=== PATIENT | female | born 1990 | race Caucasian/White ===

== ENCOUNTER 2019-09-14 14:09 | Outpatient (CLI) | payer OTHER, SELFPAY ==
--- NOTE | ~2019-09-14 | US_ITS ---
EXAMINATION: US pelvic complete w TV DATE: 09/14/2019 15:06 INDICATION: Right vaginal wall cyst. Intrauterine device. TECHNIQUE: Multiple transabdominal and transvaginal sonographic images of the pelvis were obtained. COMPARISON: None. FINDINGS: TRANSABDOMINAL ULTRASOUND: The uterus measures 8.4 x 3.4 x 5.4 cm. There is no free fluid in the pelvis. No vaginal wall cyst is seen. TRANSVAGINAL ULTRASOUND: The endometrial complex measures 2 mm in thickness. There is an intrauterine device in expected posit ion. The right ovary measures 3.6 x 2.6 x 3.0 cm. The left ovary measures 3.5 x 2.1 x 3.3 cm. IMPRESSION: 1. Intrauterine device in expected position. Reviewed, dictated and finalized at location A.
== END 2019-09-14 14:10 | disposition home or self-care (01) ==
LOC: ANHIMG 14:17
PROVIDERS: PCP Emergency Medicine; Visit Provider Nurse Practitioner
DX: Z97.5 Presence of (intrauterine) contraceptive device (principal)
CPT/HCPCS: 76830; 76856

== ENCOUNTER 2019-09-23 21:30 | Emergency (ER) | payer OTHER, SELFPAY ==
--- NOTE | ~2019-09-23 | XR_ITS ---
EXAMINATION: XR ankle RT min 3V EXAM DATE: 09/23/2019 21:46 INDICATION: Initial encounter following injury, with pain of the right ankle. TECHNIQUE: Right ankle frontal, lateral and oblique projections obtained and reviewed. There is no p rior study for comparison. FINDINGS: The right ankle mortise appears intact. There are no acute fractures or dislocations iden tified. There is no subcutaneous gas. The soft tissue is unremarkable. There are no radiopaque fo reign bodies. IMPRESSION: No acute osseous findings. Reviewed, dictated and finalized at location G. IMPRESSION: No acute osseous findings.
[2019-09-23 21:32] VITALS: BP 132/75; PULSE 104; RESP 18; TEMP 36.9; O2SAT 98
--- NOTE | 2019-09-23 21:35 | ED.LOWEXIN ---
HPI - Extremity Injury (Lower) General Chief Complaint: Extremity Injury, Lower Stated Complaint: R ankle injury Time Seen by Provider: 09/23/19 21:32 Source: patient Mode of arrival: ambulatory Limitations: no limitations History of Present Illness HPI Narrative: A 28 y/o female pt presents to the ED, with c/o a fall that occurred at home prior to arrival to the ED and rt ankle pain. Pt states she missed some stairs and fell down, but denies hitting her head or LOC. She denies any previous injuries to her RLE, or rt knee or rt hip pain. Pt notes pain to the dorsal and medial sides of her rt ankle. She reports a PMHx of PCOS and has NKA. Pt denies any chance of . MD complaint: ankle injury (rt) Onset (ago): minute(s) Injury: Right: ankle Place: home Context: fall Associated symptoms: other (rt ankle pain) Related Data Home Medications Medication Instructions Recorded Confirmed metformin mg PO 09/23/19 Allergies Allergy/AdvReac Type Severity Reaction Status Date / Time No Known Allergies Allergy Verified 09/23/19 21:36 Review of Systems Review of Systems: Narrative: CONSTITUTIONAL: Denies Fever, chills or sweats. MUSCULOSKELETAL: Denies back pain, reports right foot pain SKIN: No bruising NEURO: Denies numbness All systems reviewed & are unremarkable except as noted in HPI and below Musculoskeletal: Musculoskeletal: Reports arthralgias (rt ankle pain) and Denies other (rt knee pain, rt hip pain) Neurologic: Denies other (LOC) [facility] Past Medical History Medical History (Updated 09/23/19 @ 22:38 by Silvana [facility]) PCOS (polycystic ovarian syndrome) depression Surgical History Surgical History (Updated 09/23/19 @ 22:38 by Silvana [facility]) Surgical history unknown Family History Family History (Updated 07/21/17 @ 14:29 by DOCTOR UNKNOWN) Mother Hypertension Social History Social History Smoking status: Never smoker Gender identity (if verbalized by the patient): Female Exam Narrative: Exam Narrative: GENERAL: Awake, alert, conversant HEAD: Normocephalic, atraumatic EYES: EOMI, conjunctiva clear ENT: Nares patent. Mucous membranes moist NECK: Full ROM CHEST: No respiratory distress, speaking in full sentences, no tachypnea HEART: Regular rate ABDOMEN: Non-distended, non-tender EXTREMITIES: Normal ROM, No edema, no rt lateral malleolar tenderness, no rt medial malleolar tenderness, no rt high ankle tenderness,+ right forefoot tenderness, DP pulse 2+ to rt extremity. Full flexion and extension without pain. No metatarsal tenderness. SKIN: warm, dry, no rash NEURO: No focal deficits, Alert and oriented x 3. Course Vital Signs Vital signs: Vital Signs Temperature 36.9 C 09/23/19 21:32 Pulse Rate 104 H 09/23/19 21:32 Respiratory Rate 18 09/23/19 21:32 Blood Pressure 132/75 09/23/19 21:32 Pulse Oximetry 98 09/23/19 21:32 Temperature 36.9 C 09/23/19 21:32 Pulse Rate 98 09/23/19 22:04 Respiratory Rate 20 09/23/19 22:04 Blood Pressure 107/70 09/23/19 22:04 Pulse Oximetry 98 09/23/19 22:04 MDM - Extremity Injury (Lower) MDM Narrative Medical decision making narrative: Patient presented to the emergency department for evaluation following a fall. No head trauma or loss of consciousness. Patient is reporting right ankle and forefoot pain. On exam, patient is neurovascularly intact without any bruising, ecchymosis or edema. Good range of motion and good strength. X-ray shows no acute intraosseous abnormality. Patient likely with foot sprain. She is advised to rest, ice, elevate the extremity, to take anti-inflammatories for pain. She was then discharged home. Differential Diagnosis Differential diagnosis: Likely ankle sprain and strain, fracture of hip, fracture of toe and ankle fracture Imaging Data Radiologist's impression: ITS Impressions Ank
[2019-09-23 22:04] VITALS: BP 107/70; PULSE 98; RESP 20; O2SAT 98
== END 2019-09-23 22:05 | disposition home or self-care (01) ==
PROVIDERS: Emergency Provider Emergency Medicine; PCP Emergency Medicine
DX: S93.601A Unspecified sprain of right foot, initial encounter (principal); E28.2 Polycystic ovarian syndrome; W10.9XXA Fall (on) (from) unspecified stairs and steps, initial encounter
CPT/HCPCS: 73610; 99283

== ENCOUNTER 2025-03-10 17:10 | Emergency (ER) | payer OTHER, SELFPAY ==
--- NOTE | ~2025-03-10 | CT_ITS ---
Caryl Varner EXAMINATION: CT abdomen pelvis w con COMPARISON: None HISTORY: n/v, abd pain, rectal bleeding TECHNIQUE: Axial images were obtained through the abdomen, pelvis post administration of IV contrast. Oral contrast was also administered. Coronal reconstruction images were obtained from the axial views. CT scan performed using dose optimization techniques including the following automated exposure control; adjustment of mA and/or kV; use of iterative reconstruction technique. Automatic exposure control was used to reduce radiation dose. Permanent radiation dose record is archived to PACS. FINDINGS: CT abdomen: LUNG BASES: The lung bases are clear. The visualized portions of the heart and pericardium are unremarkable. LIVER: Unremarkable, liver contours intact, no lesions. SPLEEN: Unremarkable. KIDNEYS: Right Kidney: Right kidney subcentimeter probable renal cysts. Left Kidney: Unremarkable. No calculi. No hydronephrosis ADRENAL GLANDS: Unremarkable. PANCREAS: Unremarkable. GALLBLADDER/BILIARY: Unremarkable. No biliary dilatation. STOMACH AND ESOPHAGUS: Visualized stomach and esophagus within normal limits. BOWEL/MESENTERY: There is thickening of the large bowel with areas of mucosal hyperemia and pericolonic stranding most marked involving the descending colon. Appendix normal. Mesentery normal. No thickening or dilated loops of small bowel. ADENOPATHY/RETROPERITONEUM: No lymphadenopathy. AORTA/VASCULATURE: Normal caliber aorta. FREE FLUID OR FREE AIR: Minimal free fluid.. CT pelvis: SOLID ORGANS/REPRODUCTIVE: Unremarkable. BLADDER: Within normal limits. OSSEOUS STRUCTURES: No acute osseous abnormality.No suspicious lesions. OVERLYING SOFT TISSUES: Unremarkable. IMPRESSION: Colitis detailed above probably infectious in nature. No perforation or abscess. Reviewed, dictated and finalized at location A. IMPRESSION: Colitis detailed above probably infectious in nature. No perforation or abscess .
--- OUTSIDE RECORDS SUMMARY | 2025-03-10 17:12 | XMS_ITS | Clinical Summary ---
Author Organization [facility] [address] Address [address] [facility] 5th [place] [address] Care Team Providers Care Business Applications Manager Name Role Phone Daria Graf NP Primary Care Provider [phone] Selena Blanco MD Unavailable [phone] Allergies Active Allergy Reactions Criticality Noted Date Comments Pertussis Vaccines Medications semaglutide (Wegovy) 2.4 mg/0.75 mL auto-injectorIn dications:Weigh t Loss Management for Obese Patient (BMI >= 30) Inject 2.4 mg under the skin every 7 days 3 mL 2 5 Active EPINEPHrine 0.3 mg/0.3 mL auto-injection syringeIndicati ons:Anaphylaxis Inject 0.3 mL (0.3 mg total) into the muscle as instructed as needed for anaphylaxis Call 911 after use. 2 each 5 Active Active Problems Problem Noted Date Diagnosed Date Encounter for medication management 07/02/2024 Assessment & Plan (07/02/2024 11:08 AM OPTICAL MANUFACTURING TECHNICIAN): Doing well on semaglutide weekly. Denies side effects. Appetite reasonable well controlled and she is working on diet changes and increasing protein in diet. Will increase to final dose of 2.4mg weekly. F/u 6 months Overweight with body mass in dex (BMI) of 29 to 29.9 in adult 03/05/2024 Assessment & Plan (07/02/2024 11:06 AM OPTICAL MANUFACTURING TECHNICIAN): Current BMI of 29. Goal BMI of 25, weight 140. Will increase wegovy to 2.4mg weekly. Refills given. May f/u 6 months Assessment & Plan (03/05/2024 10:40 AM CDT): We prescribed wegovy continuation today. She has decided to stay on 1mg weekly for at least another month. Pt has been tolerating it well and wants to continue medication in conjunction with diet and exercise plan. I asked her to f/u in 3 months Annual physical exam 12/19/2023 Assessment & Plan (01/28/2025 11:35 AM CDT): Orders: Allergen Peanut cascade (food) IgE; Future CBC with auto differential; Future Comprehensive metabolic panel; Future Lipid panel; Future Thyroid Function [place]; Future Allergen Hazelnut component 9 (food) IgE; Future Assessment & Plan (12/19/2023 10:51 AM CDT): -Recommended: Healthy diet. Avoiding junk food/fast food. -30 minutes of exercise most days of the week. Increase to 45 minutes for weight loss. Health Maintenance reviewed - I believe patient likely had a Tdap when she had her 1st child who is now 8. Will need records updated. Otherwise is up-to-date. Labs ordered.. -Influenza vaccine every year Recommend: - Topic Date Due DTaP/Tdap/Td Vaccine (1 - Tdap) Never done Varicella Vaccines (1 of 2 - 13+ 2-dose series) Never done -F/u in 1 year for Annual PE or sooner if needed PCOS (polycystic ovarian syndrome) 12/19/2023 Assessment & Plan (07/02/2024 11:07 AM OPTICAL MANUFACTURING TECHNICIAN): PCOS is well controlled with current weight loss and addition of semaglutide weekly. Assessment & Plan (06/07/2024 11:11 AM OPTICAL MANUFACTURING TECHNICIAN): Doing well with Wegovy. Down 12 lb. She also sees Gynecology. We will continue Wegovy. Assessment & Plan (12/19/2023 10:53 AM CDT): History of PCOS. Primarily managed by Gynecology. Having difficulty losing weight due to PCOS. Has tried phentermine in the past. Is interested in Wegovy. Class 2 drug-induced obesity with serious comorbidity and body mass index (BMI) of 36.0 to 36.9 in adult 12/19/2023 Assessment & Plan (01/28/2025 11:35 AM CDT): Wt Readings from Last 6 Encounters: 01/28/25 66.1 kg (145 lb 12.8 oz) 07/02/24 74.2 kg (163 lb 8 oz) 03/05/24 85.3 kg (188 lb 1.6 oz) 12/19/23 90.7 kg (199 lb 14.4 oz) Goal weight is 140 lbs. States she is close to her goal weight. Continues on wegovy 2.4mg. Assessment & Plan (07/02/2024 11:06 AM OPTICAL MANUFACTURING TECHNICIAN): Starting BMI >36 Assessment & Plan (12/19/2023 12:20 PM CDT): Briefly discussed risks and benefits of Wegovy. Discussed this is all insurance base. I asked her to check into insurance coverage for Wegovy and weight loss medications. She will message or call me if she thinks her insurance will cover it. If insurance covers it I told her I can prescribe it. Will likely require a prior Auth. And then I would have her follow-up in increments for follow-up Addendum: pt called back and stated she called her insurance and they told her they do cover wegovy. Will start wegovy .25mg weekly and try for prior auth. 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 Anxiety 12/19/2023 Encounters Date Type Department Care Team Description 03/10/2025 Telephone [facility] Medical [facility] at [address] [id number] Crystal Wang NP 03/05/2025 Results Follow-Up [facility] Primary [facility] at [address] [address] Daria Graf NP CBC with auto differential, Comprehensive metabolic panel, Lipid panel, Additional followed-up results: 10 03/04/2025 9:10 AM CDT Lab [address] [address] Peanut allergy; Nut allergy; Annual physical exam; Immunity to varicella determined by serologic test; Need for hepatitis B screening test 01/28/2025 11:00 AM CDT Office Visit [facility] Primary Care at [address] [address] Daria Graf NP Peanut allergy (Primary Dx); Nut allergy; Annual physical exam; Class 2 drug-induced obesity with serious comorbidity and body mass index (BMI) of 36.0 to 36.9 in adult; Need for hepatitis B screening test; Immunity to varicella determined by serologic test from Last 3 Months Immunizations Immunization Administration Dates Next Due Influenza, Unspecified 07/02/2024(Deferr ed: Patient Refused),03/05/2024(Deferred: Patient Refused),06/20/2023(Deferred: Patient Refused),06/20/2023(Deferred: Patient Refused),06/20/2022(Deferred: Patient Refused) Medical History Medical History Date Comments PCOS (polycystic ovarian syndrome) Family History Relation Name Status Comments Father Alive Mother Alive Social History Tobacco Use Types Packs/Day Years Used Date Smoking Tobacco: Never Smokeless Tobacco: Never Tobacco Cessation:Counseling Given: Not Answered PHQ-2 Answer Date Recorded PHQ-2 Total Score (If total score is 3 or more points, staff should administer the PHQ-9) 0 01/28/2025 Comments Unknown Sex and Gender Information Value Date Recorded Sex Assigned at Not on file Legal Sex Female 8:49 PM OPTICAL MANUFACTURING TECHNICIAN Gender Identity Female 06/04/2024 9:53 AM OPTICAL MANUFACTURING TECHNICIAN Sexual Orientation Not on file Obstetrics History Last Filed Vital Signs Vital Sign Reading Time Taken Comments Blood Pressure 104/70 01/28/2025 11:01 AM CDT Pulse 103 01/28/2025 11:01 AM CDT Temperature 36.7 C (98.1 F) 01/28/2025 11:01 AM CDT Respiratory Rate 16 01/28/2025 11:0 1 AM CDT Oxygen Saturation 98% 01/28/2025 11: 01 AM CDT Inhaled Oxygen Concentration - - Weight 66.1 kg (145 lb 12.8 oz) 025 11:01 AM CDT Height 157.5 cm (5' 2) 01/28/2025 11:0 1 AM CDT Body Mass Index 26.67 01/28/2025 11:01 AM CDT Plan of Treatment Health Maintenance Due Date Last Done Comments Cervical Cancer Screening 1992 DTaP/Tdap/Td Vaccine (1 - Tdap) 10/03/2003 Varicella Vaccines (1 of 2 - 13+ 2-dose series) 2005 HPV Vaccines (1 - 3-dose SCDM series) 10/03/2019 Influenza Vaccine (#1) 2025 Depression Screening 01/28/2026 01/28/2025, 07/02/2024, 03/05/2024, Additional history exists Regular Well Visit/Exam 18-64 01/28/2026 01/28/2025, 12/19/2023 Hepatitis C Screening Completed 01/30/2024 Hepatitis B Screening Completed 03/04/2025 Pneumococcal vaccine <65 Aged Out No longer eligible based on patient's age to complete this topic Procedures Procedure Name Priority Date/Time Associated Diagnosis Comments ALLERGEN PEANUT COMPONENT 2 (FOOD) IGE Routine 03/04/2025 9:31 AM CDT Peanut allergy Nut allergy Annual physical exam EGFR Routine 03/04/2025 9:31 AM CDT Annual physical exam DIFFERENTIAL AUTO Routine 03/04/2025 9:3 1 AM CDT Annual physical exam ALLERGEN HAZELNUT COMPONENT 9 (FOOD) IGE Routine 03/04/2025 9:31 AM CDT Peanut allergy Nut allergy Annual physical exam THYROID FUNCTION CASCADE Routine 03/04/2025 9:31 AM CDT Annual physical exam LIPID PANEL Routine 03/04/2025 9:31 AM CDT Annual physical exam COMPREHENSIVE METABOLIC PANEL Routine 03/04/2025 9:31 AM CDT Annual physical exam CBC WITH AUTO DIFFERENTIAL Routine 03/04/2025 9:31 AM CDT Annual physical exam ALLERGEN PEANUT CASCADE (FOOD) IGE Routine 03/04/2025 9:31 AM CDT Peanut allergy Nut allergy Annual physical exam HEPATITIS B SURFACE ANTIBODY (IMMUNE STATUS) Routine 03/04/2025 9:31 AM CDT Need for hepatitis B screening test HEPATITIS B CORE ANTIBODY, TOTAL Routine 03/04/2025 9:31 AM CDT Need for hepatitis B screening test HEPATITIS B SURFACE ANTIGEN Routine 03/04/2025 9:31 AM CDT Need for hepatitis B screening test VARICELLA ZOSTER ANTIBODY, IGG Routine 03/04/2025 9:31 AM CDT Immunity to varicella determined by serologic test HEPATITIS C ANTIBODY Routine 01/30/2024 10:08 AM CDT from Last 3 Months or Most Recently Relevant to Health Maintenance Results * Allergen Hazelnut component 9 (food) IgE (03/04/2025 9:31 AM CDT) Hazelnut comp 9 IgE <0.10 0.00 - 0.34 kUnits/L Comment:Testing performed by : [facility], [address] [facility]., [address] Blood 03/04/2025 9:31 AM CDT 03/04/2025 1:45 PM CDT Daria Graf NP LAB BLOOD ORDERABLES Final Re sult [facility] [address] [facility] [place] [address] * eGFR (03/04/2025 9:31 AM CDT) eGFR >90 >=60 mL/min/1. 73 m2 Comment: Interpretive Data Reference Interval Normal >/= 90 mL/min/1.73m2 Mildly decreased* 60 - 89 mL/min/1.73m2 Mildly to moderately decreased 45 - 59 mL/min/1.73m2 Moderately to severely decreased 30 - 44 mL/min/1.73m2 Severely decreased 15 - 29 mL/min/1.73m2 Kidney Failure < 15 mL/min/1.73m2 *Relative to young adult level Estimated glomerular filtration rate is determined by the 2020 CKD-EPI equation recommended by the National Kidney Foundation (A Unifying Approach to GFR Estimation: Recommendations of the NKF-ASK Task Force on Reassessing the Inclusion of Race in Diagnosing Kidney Disease, JASN 2020). The CKD-EPI equation should not be used for patients with unstable renal function and has not been validated in children and those over 70. Current interpretive data was last reviewed 2021. Blood 03/04/2025 9:31 AM CDT 03/04/2025 11:24 AM CDT Daria Graf NP LAB BLOOD ORDERABLES Final Re sult [facility] [address] [facility] [place] [address] * Differential, auto (03/04/2025 9:31 AM CDT) [facility] Neutrophil abs 4.22 1.50 - 6.50 K/cumm Imm gran abs 0.02 0.00 - 0.10 K/cumm [facility] Lymphocyte abs 2.34 0.80 - 3.30 K/cumm [facility] Monocyte abs 0.45 0.20 - 0.80 K/cumm [facility] Eosinophil abs 0.32 0.00 - 0.50 K/cumm [facility] Basophil abs 0.08 0.00 - 0.10 K/cumm [facility] Neutrophil pct 56.7 % [facility] Comment: Interpretive Data Percent cell count reference ranges are not reported, since discordance with absolute values may lead to misinterpretation of CBC data. Current Interpretive Data was last revised on 2017. Imm gran pct 0.3 % [facility] Comment: Interpretive Data Percent cell count reference ranges are not reported, since discordance with absolute values may lead to misinterpretation of CBC data. Current Interpretive Data was last revised on 2017. Lymphocyte pct 31.5 % [facility] Comment: Interpretive Data Percent cell count reference ranges are not reported, since discordance with absolute values may lead to misinterpretation of CBC data. Current Interpretive Data was last revised on 2017. Monocyte pct 6.1 % [facility] Comment: Interpretive Data Percent cell count reference ranges are not reported, since discordance with absolute values may lead to misinterpretation of CBC data. Current Interpretive Data was last revised on 2017. Eosinophil pct 4.3 % [facility] Comment: Interpretive Data Percent cell count reference ranges are not reported, since discordance with absolute values may lead to misinterpretation of CBC data. Current Interpretive Data was last revised on 2017. Basophil pct 1.1 % [facility] Comment: Interpretive Data Percent cell count reference ranges are not reported, since discordance with absolute values may lead to misinterpretation of CBC data. Current Interpretive Data was last revised on 2017. Blood 03/04/2025 9:31 AM CDT 03/04/2025 11:24 AM CDT Daria Graf NP LAB BLOOD ORDERABLES Final Re sult Performing Organization Address [facility] Co de Phone Number [place] [address] [facility] [place] [employer] [place] [address] * Thyroid Function [place] (03/04/2025 9:31 AM CDT) TSH 1.47 0.30 - 4.20 mcIUnit/mL Blood 03/04/2025 9:31 AM CDT 03/04/2025 11:24 AM CDT Daria Graf LAWN CARE SPECIALIST LAB BLOOD ORDERABLES Final Re sult Performing Organization Address [facility] Co de Phone Number [place] [address] [facility] [place] [address] * (ABNORMAL) Allergen Peanut cascade (food) IgE (03/04/2025 9:31 AM CDT) [facility] Peanut IgE 1.31(H) 0.00 - 0.34 kUnits/L Comment:Testing performed by : [facility], [address] [place]., [address] Blood 03/04/2025 9:31 AM CDT 03/04/2025 1:45 PM CDT Daria Graf NP LAB BLOOD ORDERABLES Final Re sult Performing Organization Address City/[facility]/ZIP Co de Phone Number [address] [employer] [place] [address] * Allergen Peanut component 2 (food) IgE (03/04/2025 9:31 AM CDT) [facility] Peanut comp 2 IgE <0.10 0.00 - 0.34 kUnits/L Comment:Testing performed by : [facility], [address] [place] [address], [place] [address] Blood 03/04/2025 9:31 AM CDT 03/04/2025 1:58 PM CDT Daria Graf NP LAB BLOOD ORDERABLES Final Re sult [address] [employer] [place] [address] * CBC with auto differential (03/04/2025 9:31 AM CDT) [facility] WBC 7.43 3.80 - 9.90 K/cumm Hgb 12.6 11.9 - 15.5 g/dL [facility] Hct 36.9 35.6 - 45.5 % [facility] Plt 366 150 - 400 K/cumm [facility] MPV 10.1 9.1 - 12.3 fL [facility] RBC 4.06 3.90 - 5.20 M/cumm [facility] MCV 90.9 81.3 - 96.4 fL [facility] MCH 31.0 27.1 - 33.3 pg [facility] MCHC 34.1 32.3 - 35.7 g/dL [facility] RDW CV 11.5 11.1 - 14.9 % [facility] RDW SD 38.3 35.7 - 48.1 fL [facility] NRBC abs 0.00 0.00 - 0.01 K/cumm [facility] Blood 03/04/2025 9:31 AM CDT 03/04/2025 11:24 AM CDT Daria Graf NP LAB BLOOD ORDERABLES Final Re sult Performing Organization Address [facility] Co de Phone Number [address] [place] [address] * Hepatitis B core antibody, total Blood (03/04/2025 9:31 AM CDT) Pathologist [facility] Hep B core IgG/IgM Nonreactive Nonreactive Comment:Testing performed by : [facility], [address] [facility], [facility] [place] [address] Blood 03/04/2025 9:31 AM CDT 03/04/2025 1:45 PM CDT Daria Graf NP LAB MICROBIOLOGY - GENERAL OR DERABLES Final Result Performing Organization Address City/[facility] Co de Phone Number [address] [place] [address] * Hepatitis B surface antibody (immune status) Blood (03/04/2025 9:31 AM CDT) Pathologist [facility] HBsAb (immune status) Nonreactive Comment: Interpretive Data Nonreactive: This result is consistent with a lack of immunity to Hepatitis B Virus when used in the setting of routine screening. Equivocal: The immune status of the individual should be further assessed, if appropriate, after consideration of clinical status, risk factors, and additional diagnostic information. Reactive: This result is consistent with immunity to Hepatitis B Virus when used in the setting of routine screening. Current interpretive data was last revised on 19. Blood 03/04/2025 9:31 AM CDT 03/04/2025 11:24 AM CDT Daria Graf NP LAB MICROBIOLOGY - GENERAL OR DERABLES Final Result Performing Organization Address [facility] de Phone Number [address] [employer] [place] [address] * Hepatitis B Surface Antigen Blood (03/04/2025 9:31 AM CDT) Pathologist [facility] HepBsAg Nonreactive Nonreactive Blood 03/04/2025 9:31 AM CDT 03/04/2025 11:24 AM CDT Daria Graf NP LAB MICROBIOLOGY - GENERAL OR DERABLES Final Result Performing Organization Address [facility] Phone Number [address] [place] [employer] [place] [address] * (ABNORMAL) Varicella Zoster IgG antibody Blood (03/04/2025 9:31 AM CDT) Pathologist [facility] VZV IgG Nonreacti ve(A) Reactive Comment: Non-reactive: No detectable antibody to Varicella-zoster virus. Such individuals are presumed to be uninfected and to be susceptible to primary infection. Testing performed by: [facility], [address] [place]., [address] Blood 03/04/2025 9:31 AM CDT 03/04/2025 1:45 PM CDT Daria Graf NP LAB MICROBIOLOGY - GENERAL OR DERABLES Final Result Performing Organization Address [facility] Co de Phone Number [address] [place] [employer] [place] [address] * Lipid panel (03/04/2025 9:31 AM CDT) Cholesterol 148 30 - 199 mg/dL Comment: Interpretive Data Ages < or = 19 years Acceptable: <170 mg/dL Borderline high: 170-199 mg/dL High: >or= 200 mg/dL Ages > or = 20 years Desirable: <200 mg/dL Borderline high: 200-239 mg/dL High: >or= 240 mg/dL Literature References: 1. Expert Panel on Integrated Guidelines for Cardiovascular Health and Risk Reduction in Children and Adolescents. Pediatrics 2011;128:S213 2. NCEP Expert Panel. Circulation 2004;110:227 Current Interpretive Data was last revised on 2018. Triglycerides 48 <=149 mg/dL [facility] Comment: Interpretive Data Ages < or = 9 years Acceptable: <75 mg/dL Borderline high: 75-99 mg/dL High: >or= 100 mg/dL Ages 10 to 20 years Acceptable: <90 mg/dL Borderline high: 90-129 mg/dL High: >or= 130 mg/dL Ages > or = 20 years Desirable: <150 mg/dL Borderline high: 150-199 mg/dL High: 200-499 mg/dL Very high: >or= 499 mg/dL Literature References: 1. Expert Panel on Integrated Guidelines for Cardiovascular Health and Risk Reduction in Children and Adolescents. Pediatrics 2011;128:S213 2. NCEP Expert Panel. Circulation 2004;110:227 Current Interpretive Data was last revised on 2018. HDL 50 >=40 mg/dL [facility] Comment: Interpretive Data Ages < or = 19 years Acceptable: >45 mg/dL Borderline low: 40-45 mg/dL Low: <40 mg/dL Ages > or = 20 years Desirable: >or= 60 mg/dL Low: <40 mg/dL Literature References: 1. Expert Panel on Integrated Guidelines for Cardiovascular Health and Risk Reduction in Children and Adolescents. Pediatrics 2011;128:S213 2. NCEP Expert Panel. Circulation 2004;110:227 Current Interpretive Data was last revised on 2018. LDL, calculated 88 <=129 mg/dL [facility] Comment: Interpretive Data Ages < or = 19 years Acceptable: <110 mg/dL Borderline high: 110-129 mg/dL High: >or= 130 mg/dL Ages > or = 20 years Optimal: <100 mg/dL Near optimal: 100-129 mg/dL Borderline high: 130-159 mg/dL High: >160 mg/dL Calculated using the [place] LDL-C estimating equation. This equation was implemented on 2024. Prior to this date LDL-C was estimated using the Friedewald equation. Literature References: 1. Expert Panel on Integrated Guidelines for Cardiovascular Health and Risk Reduction in Children and Adolescents. Pediatrics 2011;128:S213 2. NCEP Expert Panel. Circulation 2004;110:227 3. [place] Grant et al. TAMAR Cardiol. 2020 October 18;5(5):540-548. doi: 10.1001/jamacardio.2020.0013 Current Interpretive Data was last revised on 2024. Non-HDL Cholesterol 98 mg/dL [facility] Comment: Interpretive Data Ages < or = 19 years Acceptable: <120 mg/dL Borderline high: 120-144 mg/dL High: >145 mg/dL Ages > or = 20 years When triglycerides are >200 mg/dL, Non-HDL cholesterol is a secondary target of therapy with treatment goals that are 30 mg/dL greater than the LDL cholesterol target. Literature References: 1. Expert Panel on Integrated Guidelines for Cardiovascular Health and Risk Reduction in Children and Adolescents. Pediatrics 2011;128:S213 2. NCEP Expert Panel. Circulation 2004;110:227 Current Interpretive Data was last revised on 2018. Chol/HDL ratio 3 [facility] Blood 03/04/2025 9:31 AM CDT 03/04/2025 11:24 AM CDT Daria Graf NP LAB BLOOD ORDERABLES Final Re sult [facility] [address] [facility] [place] [address] * Comprehensive metabolic panel (03/04/2025 9:31 AM CDT) Sodium 136 135 - 145 mmol/L Potassium, pl 4.0 3.3 - 4.9 mmol/L [facility] Chloride 103 97 - 110 mmol/L [facility] CO2 24 22 - 32 mmol/L [facility] Anion gap 9 2 - 15 mmol/L [facility] BUN 8 6 - 25 mg/dL [facility] Creatinine 0.71 0.60 - 1.10 mg/dL [facility] Glucose 92 70 - 199 mg/dL [facility] Comment: Interpretive Data Fasting glucose >/= 126 mg/dl is diagnostic for diabetes. Fasting is defined as no caloric intake for at least 8 hours. Fasting glucose between 100 mg/dl to 125 mg/dl is diagnostic of prediabetes. In a patient with classic symptoms of hyperglycemia or hyperglycemic crisis, a random glucose >/= 200 mg/dl is diagnostic for diabetes. In the absence of unequivocal hyperglycemia, results should be confirmed by repeat testing. The classification and Diagnosis of Diabetes Diabetes Care 202; 46: S19-S40. Current interpretive data was last revised 2022. Calcium 9.6 8.5 - 10.3 mg/dL [facility] Bilirubin, total 0.6 0.1 - 1.2 mg/dL [facility] Protein, pl 7.1 6.5 - 8.5 g/dL [facility] Albumin 4.2 3.5 - 5.0 g/dL [facility] Alk phos 52 40 - 130 Units/L [facility] ALT 15 7 - 45 Units/L [facility] AST 16 10 - 45 Units/L [facility] Blood 03/04/2025 9:31 AM CDT 03/04/2025 11:24 AM CDT Daria Graf NP LAB BLOOD ORDERABLES Final Re sult [facility] [address] [facility] [place] [address] * Hepatitis C antibody (01/30/2024 10:08 AM CDT) Hep C Ab NON-REACTI VE NON-REACT [facility] Comment: HCV antibody was non-reactive. There is no laboratory evidence of HCV infection. In most cases, no further action is required. However, if recent HCV exposure is suspected, a test for HCV RNA (test code 73715) is suggested. For additional information please refer to http://[email or web address]/faq/BBA91o4 (This link is being provided for informational/ educational purposes only.) 01/30/2024 10:0 8 AM CDT 01/30/2024 10:09 AM CDT Narrative [facility] - 02/01/2024 2:08 AM CDT FASTING:YES FASTING: YES Daria Graf LAWN CARE SPECIALIST LAB MICROBIOLOGY - GENERAL OR DERABLES Final Result [facility] [address] [place] [address] from Last 3 Months or Most Recently Relevant to Health Maintenance [facility] Care Teams Business Applications Manager Relationship Specialty Start Date End Date Daria Graf NP [address] [place] [address] PCP - General Family Medicine 12/03/24 Selena Blanco MD [address] [place], [place] [id number] Referring Physician Gynecology 01/28/25
--- OUTSIDE RECORDS SUMMARY | 2025-03-10 17:12 | XMS_ITS | Encounter Summary ---
Author Organization [facility] Healthcare Address [address] [place] [address] Care Team Providers Care Brick Veneer Maker Name Role Phone Daria Graf NP Primary Care Provider [phone] Selena Blanco MD Unavailable [phone] Encounter Details Date Type Department Care Team (Late st Contact Info) Description 03/10/2025 Telephone [facility] Convenient Care at [address] [address] Crystal Wang NP [address] [place] [address] Social History Tobacco Use Types Packs/Day Years Used Date Smoking Tobacco: Never Smokeless Tobacco: Never PHQ-2 Answer Date Recorded PHQ-2 Total Score (If total score is 3 or more points, staff should administer the PHQ-9) 0 01/28/2025 Comments Unknown Sex and Gender Information Value Date Recorded Sex Assigned at Not on file Legal Sex Female 8:49 PM CLERK TELEVISION PRODUCTION Gender Identity Female 06/04/2024 9:53 AM CLERK TELEVISION PRODUCTION Sexual Orientation Not on file documented as of this encounter Miscellaneous Notes * Telephone Encounter - Crystal Wang NP - 03/10/2025 12:31 PM CDT Patient is scheduled at the convenient care for sharp, intense abdominal pain that started waking her up last night and passing blood through her rectum/stool. Called patient to discuss her symptoms and to notify her of what the CC is capable of doing and ordering. Discussed with patient that I would be happy to see her and assess her however with her symptoms I would probably recommend she go [facility] ER for potential CT scan, blood work, or stool studies. Patient verbalized understanding and thanked me for her call stating that she was unaware that we were not able to order a CT scan or do blood work. Patient verbalized to cancel her appointment and that she would follow-up elsewhere. Crystal Wang NP documented in this encounter Plan of Treatment Not on file documented as of this encounter Visit Diagnoses Not on filedocumented in this encounter Care Teams Brick Veneer Maker Relationship Specialty Start Date End Date Daria Graf NP [address] [place] [address] PCP - General Family Medicine 12/03/24 Selena Blanco MD [address] [facility] [address] [place] [address] Referring Physician Gynecology 01/28/25 documented as of this encounter
[2025-03-10 17:20] VITALS: BP 115/78; PULSE 108; RESP 16; TEMP 36.9; O2SAT 99
[2025-03-10 18:29] VITALS: BP 118/84; PULSE 100; RESP 17; TEMP 36.4; O2SAT 100
[2025-03-10 18:48] LABS: Hematocrit 36.3 % (37.0-47.0); Hemoglobin 12.6 g/dL (12.0-15.0); Immature Granulocyte Percent A 0.3 % (0-0.5); Lymphocytes Absolute Auto 2.10 K/mm3 (0.9-3.2); Mean Corpuscular HGB Conc 34.7 g/dl (32-36); Mean Corpuscular Hemoglobin 30.8 pg (26-34); Mean Corpuscular Volume 88.8 fl (80-100); Nucleated Red Blood Cells Absolute Auto 0.000 K/mm3 (0.0-0.012); Nucleated Red Blood Cells Perc 0.0 % (0.0-0.2); Platelet Count Result 360 k/mm3 (150-375); Red Blood Count 4.09 M/mm3 (4.2-5.4); White Blood Count 12.6 K/mm3 (4.5-10.0)
[2025-03-10 18:59] LABS: Alanine Aminotransferase 20 U/L (6-35); Albumin Level 4.0 g/dL (3.5-5.1); Alkaline Phosphatase 60 U/L (38-126); Anion Gap 8 mmol/L (4-12); Aspartate Amino Transferase 22 U/L (14-36); Bilirubin,Total 0.5 mg/dL (0.2-1.3); Blood Urea Nitrogen 3 mg/dL (7-17); Calcium 9.0 mg/dL (8.4-10.2); Carbon Dioxide 26 mmol/L (22-30); Chloride 104 mmol/L (98-107); Estimated CRCL calculation 88 ml/min; Estimated Glomerular Filt Rate > 60; Glucose 94 mg/dL (65-110); Potassium 3.2 mmol/L (3.4-5.0); Sodium 138 mmol/L (137-145); Total Protein 7.0 g/dL (6.3-8.2)
[2025-03-10 19:02] LABS: INR 1.1; Prothrombin Time 14.3 Seconds (11.1-14.7)
[2025-03-10 19:03] LABS: Partial Thromboplastin Time 28.0 Seconds (22.3-36.8)
[2025-03-10] MEDS: PANTOPRAZOLE SODIUM IV 40 MG VIAL IV PUSH (19:03)
[2025-03-10] MEDS: ONDANSETRON INJ 4 MG/2 ML VIAL IV PUSH (19:04)
--- OUTSIDE RECORDS SUMMARY | 2025-03-10 19:41 | XMS_ITS | Encounter Summary ---
Author Organization [facility] Healthcare Address [address] [place] [address] Care Team Providers Care Medicinal Plant Picker Name Role Phone Daria Graf NP Primary Care Provider [phone] Selena Blanco MD Unavailable [phone] Encounter Details Date Type Department Care Team (Latest Contact Info) Description 03/05/2025 Results Follow-Up [facility] Primary Care at [address] [address] Daria Graf NP [address] [facility] [address] [place] [address] CBC with auto differential, Comprehensive metabolic panel, Lipid panel, Additional followed-up results: 10 Social History Tobacco Use Types Packs/Day Years Used Date Smoking Tobacco: Never Smokeless Tobacco: Never PHQ-2 Answer Date Recorded PHQ-2 Total Score (If total score is 3 or more points, staff should administer the PHQ-9) 0 01/28/2025 Comments Unknown Sex and Gender Information Value Date Recorded Sex Assigned at Not on file Legal Sex Female 8:49 PM SET UP MECHANIC COATING MACHINES Gender Identity Female 06/04/2024 9:53 AM SET UP MECHANIC COATING MACHINES Sexual Orientation Not on file documented as of this encounter Plan of Treatment Not on file documented as of this encounter Visit Diagnoses Not on filedocumented in this encounter Care Teams Medicinal Plant Picker Relationship Specialty Start Date End Date Daria Graf NP [address] [facility] [address] [place] [address] PCP - General Family Medicine 12/03/24 Selena Blanco MD [address] [address] Referring Physician Gynecology 01/28/25 documented as of this encounter
--- OUTSIDE RECORDS SUMMARY | 2025-03-10 19:41 | XMS_ITS | Encounter Summary ---
Author Organization [facility] Healthcare Address [address] [place] [address] Care Team Providers Care Lye Peel Operator Name Role Phone Daria Graf NP Primary Care Provider [phone] Selena Blanco MD Unavailable [phone] Encounter Details Date Type Department Care Team (Late st Contact Info) Description 03/10/2025 Telephone [facility] Medical Group Convenient Care at [address] [address] Crystal Wang NP [address] [place] [address] Social History Tobacco Use Types Packs/Day Years Used Date Smoking Tobacco: Never Smokeless Tobacco: Never PHQ-2 Answer Date Recorded PHQ-2 Total Score (If total score is 3 or more points, staff should administer the PHQ-9) 0 01/28/2025 Comments Unknown Sex and Gender Information Value Date Recorded Sex Assigned at Not on file Legal Sex Female 8:49 PM STONER OUT Gender Identity Female 06/04/2024 9:53 AM STONER OUT Sexual Orientation Not on file documented as [...] symptoms I would probably recommend she go [facility] ER for potential CT scan, blood work, [...] on filedocumented in this encounter Care Teams Lye Peel Operator Relationship Specialty Start Date End Date Daria Graf NP [address] [place] [address] PCP - General Family Medicine 12/03/24 Selena Blanco MD [address] [facility] [address] [place] [address] Referring Physician Gynecology 01/28/25 documented as of this encounter
--- OUTSIDE RECORDS SUMMARY | 2025-03-10 19:41 | XMS_ITS | Clinical Summary ---
Author Organization [facility] [address] Address [address] [facility] 5th [place] [address] Care Team Providers Care Conveyor Line Bakery Worker Name Role Phone Daria Graf NP Primary Care Provider [phone] Selena Blanco MD Unavailable [phone] Allergies Active Allergy Reactions Criticality Noted Date [...] 07/02/2024 Assessment & Plan (07/02/2024 11:08 AM CRIMPER OPERATOR): Doing well on semaglutide weekly. Denies side effects. Appetite reasonable well controlled and she is working on diet changes and increasing protein in diet. Will increase to final dose of 2.4mg weekly. F/u 6 months Overweight with body mass in dex (BMI) of 29 to 29.9 in adult 03/05/2024 Assessment & Plan (07/02/2024 11:06 AM CRIMPER OPERATOR): Current BMI of 29. Goal BMI of [...] panel; Future Lipid panel; Future Thyroid Function Sanders; Future Allergen Hazelnut component 9 (food) IgE; [...] 12/19/2023 Assessment & Plan (07/02/2024 11:07 AM CRIMPER OPERATOR): PCOS is well controlled with current weight loss and addition of semaglutide weekly. Assessment & Plan (06/07/2024 11:11 AM CRIMPER OPERATOR): Doing well with Wegovy. Down 12 lb. [...] 2.4mg. 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 Anxiety 12/19/2023 Encounters Date Type Department Care Team Description 03/10/2025 Telephone [facility] Medical [facility] Convenient Care at [address] [address] Crystal Wang NP 03/05/2025 Results Follow-Up [facility] Primary Care at [address] [address] Daria Graf NP CBC with auto differential, Comprehensive metabolic panel, Lipid panel, Additional followed-up results: 10 03/04/2025 9:10 AM CDT Lab [address] [address] Peanut allergy; Nut allergy; Annual physical exam; Immunity to varicella determined by serologic test; Need for hepatitis B screening test 01/28/2025 11:00 AM CDT Office Visit [facility] Medical Group Primary Care at [address] [address] Daria Graf NP Peanut allergy (Primary Dx); [...] on file Legal Sex Female 8:49 PM CRIMPER OPERATOR Gender Identity Female 06/04/2024 9:53 AM CRIMPER OPERATOR Sexual Orientation Not on file Obstetrics History [...] - 0.34 kUnits/L Comment:Testing performed by : [facility], [address] [facility] [place]., [address] Blood 03/04/2025 9:31 AM CDT 03/04/2025 1:45 PM CDT Daria Graf NP LAB BLOOD ORDERABLES Final Re sult [facility] [address] [facility] [place] [address] * eGFR (03/04/2025 9:31 AM [...] NP LAB BLOOD ORDERABLES Final Re sult [facility] [address] [facility] [place] [address] * Differential, auto (03/04/2025 9:31 AM CDT) [facility] Neutrophil abs 4.22 1.50 - 6.50 K/cumm Imm gran abs 0.02 0.00 - 0.10 K/cumm [facility] Lymphocyte abs 2.34 0.80 - 3.30 K/cumm [facility] Monocyte abs 0.45 0.20 - 0.80 K/cumm [facility] Eosinophil abs 0.32 0.00 - 0.50 K/cumm [facility] Basophil abs 0.08 0.00 - 0.10 K/cumm [facility] Neutrophil pct 56.7 % [facility] Comment: Interpretive Data Percent cell count reference ranges are not reported, since discordance with absolute values may lead to misinterpretation of CBC data. Current Interpretive Data was last revised on 2017. Imm gran pct 0.3 % [facility] Comment: Interpretive Data Percent cell count reference ranges are not reported, since discordance with absolute values may lead to misinterpretation of CBC data. Current Interpretive Data was last revised on 2017. Lymphocyte pct 31.5 % [facility] Comment: Interpretive Data Percent cell count reference ranges are not reported, since discordance with absolute values may lead to misinterpretation of CBC data. Current Interpretive Data was last revised on 2017. Monocyte pct 6.1 % [facility] Comment: Interpretive Data Percent cell count reference ranges are not reported, since discordance with absolute values may lead to misinterpretation of CBC data. Current Interpretive Data was last revised on 2017. Eosinophil pct 4.3 % [facility] Comment: Interpretive Data Percent cell count reference ranges are not reported, since discordance with absolute values may lead to misinterpretation of CBC data. Current Interpretive Data was last revised on 2017. Basophil pct 1.1 % [facility] Comment: Interpretive Data Percent cell count reference ranges are not reported, since discordance with absolute values may lead to misinterpretation of CBC data. Current Interpretive Data was last revised on 2017. Blood 03/04/2025 9:31 AM CDT 03/04/2025 11:24 AM CDT Daria Graf NP LAB BLOOD ORDERABLES Final Re sult Performing Organization Address [facility] Co de Phone Number [place] [phone] [facility] [place] [address] * Thyroid Function Sanders (03/04/2025 9:31 AM CDT) TSH 1.47 0.30 - 4.20 mcIUnit/mL Blood 03/04/2025 9:31 AM CDT 03/04/2025 11:24 AM CDT Daria Graf RN CLINICAL APPEALS LAB BLOOD ORDERABLES Final Re sult Performing Organization Address [facility] Co de Phone Number [place] [phone] [facility] [place] [address] * (ABNORMAL) Allergen Peanut cascade (food) IgE (03/04/2025 9:31 AM CDT) [facility] Peanut IgE 1.31(H) 0.00 - 0.34 kUnits/L Comment:Testing performed by : [facility], [address] [place]., [address] Blood 03/04/2025 9:31 AM CDT 03/04/2025 1:45 PM CDT Daria Graf NP LAB BLOOD ORDERABLES Final Re sult Performing Organization Address City/[facility]/ZIP Co de Phone Number [address] [place] [address] * Allergen Peanut component 2 (food) IgE (03/04/2025 9:31 AM CDT) [facility] Peanut comp 2 IgE <0.10 0.00 - 0.34 kUnits/L Comment:Testing performed by : [facility], [address] [place] [address], [place]., [address] Blood 03/04/2025 9:31 AM CDT 03/04/2025 1:58 PM CDT Daria Graf NP LAB BLOOD ORDERABLES Final Re sult [address] [place] [address] * CBC with auto differential (03/04/2025 9:31 AM CDT) [facility] WBC 7.43 3.80 - 9.90 K/cumm Hgb 12.6 11.9 - 15.5 g/dL [facility] Hct 36.9 35.6 - 45.5 % [facility] Plt 366 150 - 400 K/cumm [facility] MPV 10.1 9.1 - 12.3 fL [facility] RBC 4.06 3.90 - 5.20 M/cumm [facility] MCV 90.9 81.3 - 96.4 fL [facility] MCH 31.0 27.1 - 33.3 pg [facility] MCHC 34.1 32.3 - 35.7 g/dL [facility] RDW CV 11.5 11.1 - 14.9 % [facility] RDW SD 38.3 35.7 - 48.1 fL [facility] NRBC abs 0.00 0.00 - 0.01 K/cumm [facility] Blood 03/04/2025 9:31 AM CDT 03/04/2025 11:24 AM CDT Daria Graf NP LAB BLOOD ORDERABLES Final Re sult Performing Organization Address [facility] Co de Phone Number [address] [place] [address] * Hepatitis B core antibody, total Blood (03/04/2025 9:31 AM CDT) Pathologist [facility] Hep B core IgG/IgM Nonreactive Nonreactive Comment:Testing performed by : [facility], [address] [facility], [place]., [address] Blood 03/04/2025 9:31 AM CDT 03/04/2025 1:45 PM CDT Daria Graf NP LAB MICROBIOLOGY - GENERAL OR DERABLES Final Result Performing Organization Address City/[facility] Co de Phone Number [address] [place] [address] * Hepatitis B surface antibody (immune status) Blood (03/04/2025 9:31 AM CDT) Pathologist [facility] HBsAb (immune status) Nonreactive Comment: Interpretive Data [...] OR DERABLES Final Result Performing Organization Address [facility] de Phone Number [id number] [place] [address] * Hepatitis B Surface Antigen Blood (03/04/2025 9:31 AM CDT) Pathologist [facility] HepBsAg Nonreactive Nonreactive Blood 03/04/2025 9:31 AM CDT 03/04/2025 11:24 AM CDT Daria Graf NP LAB MICROBIOLOGY - GENERAL OR DERABLES Final Result Performing Organization Address [facility] Phone Number [address] [place] [address] * (ABNORMAL) Varicella Zoster IgG antibody Blood (03/04/2025 9:31 AM CDT) Pathologist [facility] VZV IgG Nonreacti ve(A) Reactive Comment: Non-reactive: No detectable antibody to Varicella-zoster virus. Such individuals are presumed to be uninfected and to be susceptible to primary infection. Testing performed by: [facility], [address] [facility] [place] [address] Blood 03/04/2025 9:31 AM CDT 03/04/2025 1:45 PM CDT Daria Graf NP LAB MICROBIOLOGY - GENERAL OR DERABLES Final Result Performing Organization Address [facility] Co de Phone Number [address] [place] [address] * Lipid panel (03/04/2025 9:31 AM CDT) [...] last revised on 2018. Chol/HDL ratio 3 [facility] Blood 03/04/2025 9:31 AM CDT 03/04/2025 11:24 AM CDT Daria Graf NP LAB BLOOD ORDERABLES Final Re sult [facility] [address] [facility] [place] [address] * Comprehensive metabolic panel (03/04/2025 9:31 AM CDT) Sodium 136 135 - 145 mmol/L Potassium, pl 4.0 3.3 - 4.9 mmol/L [facility] Chloride 103 97 - 110 mmol/L [facility] CO2 24 22 - 32 mmol/L [facility] Anion gap 9 2 - 15 mmol/L [facility] BUN 8 6 - 25 mg/dL [facility] Creatinine 0.71 0.60 - 1.10 mg/dL [facility] Glucose 92 70 - 199 mg/dL [facility] Comment: Interpretive Data Fasting glucose >/= [...] 2022. Calcium 9.6 8.5 - 10.3 mg/dL [facility] Bilirubin, total 0.6 0.1 - 1.2 mg/dL [facility] Protein, pl 7.1 6.5 - 8.5 g/dL [facility] Albumin 4.2 3.5 - 5.0 g/dL [facility] Alk phos 52 40 - 130 Units/L [facility] ALT 15 7 - 45 Units/L [facility] AST 16 10 - 45 Units/L [facility] Blood 03/04/2025 9:31 AM CDT 03/04/2025 11:24 AM CDT Daria Graf NP LAB BLOOD ORDERABLES Final Re sult [facility] [address] [facility] [place] [address] * Hepatitis C antibody (01/30/2024 10:08 AM CDT) Hep C Ab NON-REACTI VE NON-REACT [facility] Comment: HCV antibody was non-reactive. There is no laboratory evidence of HCV infection. In most cases, no further action is required. However, if recent HCV exposure is suspected, a test for HCV RNA (test code 79486) is suggested. For additional information please refer to http://education.[employer].Liveclubs/faq/JYE69b6 (This link is being provided for informational/ educational purposes only.) 01/30/2024 10:0 8 AM CDT 01/30/2024 10:09 AM CDT Narrative [facility] - 02/01/2024 2:08 AM CDT FASTING:YES FASTING: YES Daria Graf RN CLINICAL APPEALS LAB MICROBIOLOGY - GENERAL OR DERABLES Final Result [facility] [address] [place] [address] from Last 3 Months or Most Recently Relevant to Health Maintenance [facility] Care Teams Conveyor Line Bakery Worker Relationship Specialty Start Date End Date Daria Graf NP [address] [place] [address] PCP - General Family Medicine 12/03/24 Selena Blanco MD [address] [place], [place] [id number] Referring Physician Gynecology 01/28/25
[2025-03-10] MEDS: LACTATED RINGERS 1,000 ML 999 ML IV CONT (20:07)
[2025-03-10] MEDS: POTASSIUM CHLORIDE 20 MEQ ER TABLET 40 MEQ PO (20:25)
[2025-03-10] MEDS: ACETAMINOPHEN 500 MG TABLET 1000 MG PO (20:25)
[2025-03-10] MEDS: METOCLOPRAMIDE HCL INJ 10 MG/2 ML VIAL IV PUSH (20:25)
--- NOTE | 2025-03-10 20:49 | ED_ITS ---
HPI - GI Bleed General Chief complaint: GI Bleed Stated complaint: abd pain, n/v, gi bleed Time Seen by Provider: 03/10/25 18:54 History of Present Illness HPI Narrative: Patient presenting here with lower abdominal pain, nausea, ongoing for last 1-2 days, she started noticing a little bit of bright red blood when she wiped and came into the hospital. Never had this happen before. No fevers or chills. Is on Wegovy but has been on it for a year Related Data Home Medications ?Medication ?Instructions ?Recorded ?Confirmed ?Last Taken ?Type metformin 500 mg tablet,extended mg PO 09/23/19 Unkno wn History release 24 hr Allergies Allergy/AdvReac Type Severity Reaction Status Date / Time No Known Allergies Allergy Verified 03/10/25 17:22 Review of Systems 2 Review of Systems: All systems reviewed & are unremarkable except as noted in HPI and below PMFSH Past Medical History Medical History (Updated 03/10/25 @ 20:20 by Bettye Woods MD) depression PCOS (polycystic ovarian syndrome) Surgical History Surgical History (Updated 09/23/19 @ 22:38 by Silvana HendersonEVIIVO) Surgical history unknown Family History Family History (Updated 07/21/17 @ 14:29 by DOCTOR UNKNOWN) Mother Hypertension Social History Social History Smoking status: Never smoker Gender identity (if verbalized by the patient): Female Exam 2 Narrative: EXAMINATION OF ORGAN SYSTEMS/BODY AREAS: Constitutional: Vital signs per nursing GENERAL:[No acute distress, non-toxic appearing.] HEAD: Normal with no signs of head trauma. EYES: EOMI, conjunctiva normal ENT: Hearing grossly intact LUNGS: Nonlabored breathing. HEART: [Regular rate and rhythm] ABD: [Soft], minimally tender to deep palpation lower abdomen RECTAL: Stool with small blood, hemoccult + EXT: Normal range of motion SKIN: [No rashes or lesions.] NEURO: [Alert and oriented x 3. No gross focal sensory or strength deficits.] PSYCH: Normal affect Course Vital Signs Vital signs: Vital Signs Temperature 98.4 F 03/10/25 17:20 Pulse Rate 108 H 03/10/25 17:20 Respiratory Rate 16 03/10/25 17:20 Blood Pressure 115/78 03/10/25 17:20 Pulse Oximetry 99 03/10/25 17:20 Temperature 97.6 F 03/10/25 18:29 Pulse Rate 100 03/10/25 18:29 Respiratory Rate 17 03/10/25 18:29 Blood Pressure 118/84 03/10/25 18:29 Pulse Oximetry 100 03/10/25 18:29 Oxygen Delivery Room Air 03/10/25 18:29 MDM - GI Bleed MDM Narrative Medical decision making narrative: Electronic medical record was reviewed. Patient presented to the ED with complaint of [abdominal pain and vomiting and bright red blood per rectum]. Vitals [were within acceptable limits]. Physical exam revealed well-appearing patient with some slight tenderness to palpation to the lower abdomen, some reddish stool on rectal exam hemoccult positive. Based on the patient's history and physical exam, my differential includes but is not limited to colitis, gastroenteritis or gastritis, internal hemorrhoids. [IV access was established by nursing staff. Patient was given zofran, Protonix, fluids]. CBC, BMP, lipase, LFTs, bilirubin and alk phos were obtained. Labs were pertinent for white count 12.6, potassium 3.2 which is repleted. [Decision was made to obtain a CT-abdomen to evaluate for acute abdominal process. CT-abdomen per radiology interpretation shows colitis.] On reevaluation, the patient is reporting a slight headache, additional medications ordered. After medications, there were no witnessed episodes of vomiting in the emergency department. They are not complaining of any new abdominal pain. Repeat examination did not show any significant guarding or rebound. No new tenderness. At this time I do not feel there is any further emergent treatment to be provided. The patient was given strict return precautions, if they are to develop any worsening abdominal pain, vomiting, or blood in the vomit they are to return to the emergency department immediately. Patient verbally acknowledges understanding these directions. [The patient was informed of the above diagnostic test findings.] They will be discharged home [with prescriptions]. They were advised to follow-up with gastroenterology with her PCP in 2 days. The patient feels that this is appropriate medical decision making and verbalizes an understanding of the discharge instructions. Lab Data 03/10/25 18:41 03/10/25 18:41 Labs: Lab Results 03/10/25 Range/Units 18:41 WBC 12.6 H (4.5-10.0) K/mm3 RBC 4.09 L (4.2-5.4) M/mm3 Hgb 12.6 (12.0-15.0) g/dL Hct 36.3 L (37.0-47.0) % MCV 88.8 (80-100) fl MCH 30.8 (26-34) pg MCHC 34.7 (32-36) g/dl RDW 11.6 (11.5-14.5) % Plt Count 360 (150-375) k/mm3 MPV 9.2 (7.4-10.4) fl Immature Gran % (Auto) 0.3 (0-0.5) % Neut % (Auto) 74.5 H (45.5-73.1) % Lymph % (Auto) 16.7 L (18.3-44.2) % Collier % (Auto) 6.4 (2.6-8.5) % Eos % (Auto) 1.4 (0-4.4) % Baso % (Auto) 0.7 (0.2-1.2) % Lymph # (Auto) 2.10 (0.9-3.2) K/mm3 Collier # (Auto) 0.8 H (0.1-0.6) K/mm3 Eos # (Auto) 0.2 (0-0.3) K/mm3 Baso # (Auto) 0.1 (0.0-0.1) K/mm3 Abs Immat Gran (auto) 0.04 H (0.00-0.031) K/mm3 Absolute Neuts (auto) 9.4 H (1.3-6.7) K/mm3 Absolute Nucleated RBC 0.000 (0.0-0.012) K/mm3 Nucleated RBC % 0.0 (0.0-0.2) % PT 14.3 (11.1-14.7) Seconds INR 1.1 APTT 28.0 (22.3-36.8) Seconds Sodium 138 (137-145) mmol/L Potassium 3.2 L (3.4-5.0) mmol/L Chloride 104 (98-107) mmol/L Carbon Dioxide 26 (22-30) mmol/L Anion Gap 8 (4-12) mmol/L BUN 3 L (7-17) mg/dL Creatinine 0.69 L (0.7-1.0) mg/dL Estim Creat Clear Calc 88 ml/min Estimated GFR > 60 (59 - ) Glucose 94 (65-110) mg/dL Calcium 9.0 (8.4-10.2) mg/dL Total Bilirubin 0.5 (0.2-1.3) mg/dL AST 22 (14-36) U/L ALT 20 (6-35) U/L Alkaline Phosphatase 60 (38-126) U/L Total Protein 7.0 (6.3-8.2) g/dL Albumin 4.0 (3.5-5.1) g/dL Blood Type O Positive Antibody Screen Negative Discharge Plan Discharge Clinical Impression: Colitis Patient Disposition: Home Condition: Stable Instructions: Colitis (ED) Additional Instructions: Please follow-up with the GI specialist, you can try the medications as prescribed, and come back to the ER for any further issues. Patient Language: Indonesian Prescriptions: New acetaminophen [Tylenol Extra Strength] 500 mg tablet 1,000 mg PO Q6H PRN (Reason: pain) Qty: 50 0RF famotidine 20 mg tablet 20 mg PO DAILY Qty: 30 0RF ondansetron 4 mg tablet,disintegrating 4 mg PO Q8H PRN (Reason: nausea and vomiting) Qty: 20 0RF No Action metformin 500 mg tablet extended release 24 hr PO Follow-up/Referrals: Heath Sousa MD [Physician, Gastroenterology] - 2 Days Homar,OKSANA Banuelos [Primary Care Provider, Unknown]
[2025-03-10 21:03] VITALS: BP 113/80; PULSE 74; RESP 15; O2SAT 100
== END 2025-03-10 21:03 | disposition home or self-care (01) ==
PROVIDERS: Emergency Medicine; Emergency Provider Emergency Medicine; PCP Nurse Practitioner Family
DX: K52.9 Noninfective gastroenteritis and colitis, unspecified (principal)
CPT/HCPCS: 36415; 74177; 80053; 85025; 85610; 85730; 86850; 86900; 86901; 96361; 96374; 96375; 99284; A9270; J2405; J2470; J2765; J7120; Q9967